=== PATIENT | female | born 1995 | race Caucasian/White ===

== ENCOUNTER 2017-02-04 12:52 | Emergency (ER) | payer OTHER ==
[~2017-02-04] VITALS: Ht 160 cm; Wt 119.3 kg
[2017-02-04 14:05] VITALS: BP 134/85
== END 2017-02-04 14:05 | disposition home or self-care (01) ==
LOC: ED 12:52
DX: J02.9 Acute pharyngitis, unspecified (principal); I10 Essential (primary) hypertension; E66.01 Morbid (severe) obesity due to excess calories

== ENCOUNTER 2017-02-20 13:52 | Emergency (ER) | payer OTHER ==
[~2017-02-20] VITALS: Ht 160 cm; Wt 119.9 kg
[2017-02-20 18:31] VITALS: BP 125/68
== END 2017-02-20 18:31 | disposition home or self-care (01) ==
LOC: ED 13:52
DX: G44.209 Tension-type headache, unspecified, not intractable (principal); I10 Essential (primary) hypertension
CPT/HCPCS: J2270; J2550

== ENCOUNTER 2017-05-14 05:54 | Emergency (ER) | payer OTHER ==
[~2017-05-14] VITALS: Ht 160 cm; Wt 123.4 kg
[2017-05-14 06:09] VITALS: BP 132/81
== END 2017-05-14 06:57 | disposition home or self-care (01) ==
LOC: ED 05:54
DX: R60.0 Localized edema (principal); I10 Essential (primary) hypertension

== ENCOUNTER 2017-05-23 19:29 | Emergency (ER) | payer OTHER ==
[2017-05-23 21:27] LABS: BASOPHIL % 0.6 % (0-2); PLATELET COUNT 238 x10^3mcL (130-400); RED CELL DISTRIBUTION WIDTH 13.3 % (11.5-14.5)
[2017-05-23 21:35] LABS: CALCIUM 8.7 mg/dL (8.5-10.1); CARBON DIOXIDE 27.8 mmol/L (21-32); CHLORIDE SERUM 105 mmol/L (98-107); CREATININE SERUM 0.9 mg/dL (0.6-1.0); GFR1 > 60 mL/min; GLUCOSE SERUM 104 mg/dL (74-106); POTASSIUM SERUM 3.2 mmol/L (3.5-5.1); SODIUM SERUM 141 mmol/L (136-145)
[2017-05-23 21:47] LABS: ALBUMIN 3.4 g/dL (3.4-5.0); ALKALINE PHOSPHATASE 56 U/L (46-116); ALT/SGPT 48 U/L (14-59); AST/SGOT 25 U/L (15-37); BILIRUBIN TOTAL 0.26 mg/dL (0.20-1.00); CHOLESTEROL 170 mg/dL (<200); HDL CHOLESTEROL 51 mg/dL (40-60); T4(THYROXINE) 8.4 ug/dL (4.7-13.3)
[2017-05-23 21:59] LABS: UA SPECIFIC GRAVITY 1.025 (1.005-1.035); microscopic required? YES; urine erythrocyte TRACE (NEGATIVE)
[2017-05-23 22:05] LABS: AMPHETAMINE QUAL UR NONE DETECTED (NEG <=1000)
[2017-05-24] VITALS: BP 138/83
== END 2017-05-24 | disposition home or self-care (01) ==
LOC: ED 19:29
PROVIDERS: Emergency Medicine
DX: R60.0 Localized edema (principal); E87.6 Hypokalemia; E66.01 Morbid (severe) obesity due to excess calories; I10 Essential (primary) hypertension; G47.30 Sleep apnea, unspecified
CPT/HCPCS: 36415; 83880

== ENCOUNTER 2017-09-13 14:11 | Emergency (ER) | payer OTHER ==
[2017-09-13 14:50] VITALS: BP 127/86
== END 2017-09-13 14:50 | disposition home or self-care (01) ==
LOC: ED 14:11
DX: J06.9 Acute upper respiratory infection, unspecified (principal); H92.03 Otalgia, bilateral; I10 Essential (primary) hypertension; Z90.89 Acquired absence of other organs

== ENCOUNTER 2017-10-26 13:44 | Emergency (ER) | payer OTHER ==
[2017-10-26 17:04] VITALS: BP 142/85
== END 2017-10-26 17:04 | disposition home or self-care (01) ==
LOC: ED 13:44
DX: J02.0 Streptococcal pharyngitis (principal); I10 Essential (primary) hypertension; G47.30 Sleep apnea, unspecified; R51 Headache
CPT/HCPCS: J7030

== ENCOUNTER 2017-11-06 13:26 | Emergency (ER) | payer OTHER ==
[~2017-11-06] VITALS: Ht 160 cm; Wt 118.4 kg
[2017-11-06 13:37] VITALS: BP 160/89; Ht 160 cm; Wt 118.4 kg
== END 2017-11-06 15:37 | disposition home or self-care (01) ==
LOC: ED 13:26
DX: J03.90 Acute tonsillitis, unspecified (principal); I10 Essential (primary) hypertension

== ENCOUNTER 2017-12-31 09:09 | Emergency (ER) | payer OTHER ==
[~2017-12-31] VITALS: Ht 162.6 cm; Wt 116.7 kg
[2017-12-31 09:32] VITALS: BP 105/50
== END 2017-12-31 11:34 | disposition home or self-care (01) ==
LOC: ED 09:09
DX: J06.9 Acute upper respiratory infection, unspecified (principal); J01.90 Acute sinusitis, unspecified; R07.89 Other chest pain

== ENCOUNTER 2018-02-04 22:52 | Emergency (ER) | payer OTHER ==
[~2018-02-04] VITALS: Ht 160 cm; Wt 117.9 kg
[2018-02-04 23:03] VITALS: Ht 160 cm; Wt 117.9 kg
[2018-02-05 00:54] VITALS: BP 125/75
== END 2018-02-05 00:54 | disposition home or self-care (01) ==
LOC: ED 22:52
DX: M54.5 Low back pain (principal); I10 Essential (primary) hypertension; Z90.49 Acquired absence of other specified parts of digestive tract; F17.210 Nicotine dependence, cigarettes, uncomplicated

== ENCOUNTER 2018-02-10 20:15 | Emergency (ER) | payer OTHER ==
[~2018-02-10] VITALS: Ht 167.6 cm; Wt 116.6 kg
[2018-02-10 21:02] VITALS: BP 122/82; Ht 167.6 cm; Wt 116.6 kg
== END 2018-02-10 22:28 | disposition left against medical advice (07) ==
LOC: ED 20:15
DX: Z53.21 Procedure and treatment not carried out due to patient leaving prior to being seen by health care provider (principal)

== ENCOUNTER 2018-02-12 13:30 | Emergency (ER) | payer OTHER ==
[~2018-02-12] VITALS: Ht 160 cm; Wt 115.7 kg
[2018-02-12 13:49] VITALS: Ht 160 cm; Wt 115.7 kg
[2018-02-12 15:33] VITALS: BP 134/75
== END 2018-02-12 15:33 | disposition home or self-care (01) ==
LOC: ED 13:30
DX: N39.0 Urinary tract infection, site not specified (principal); I10 Essential (primary) hypertension

== ENCOUNTER 2018-03-05 20:35 | Emergency (ER) | payer OTHER ==
[~2018-03-05] VITALS: Ht 160 cm; Wt 117.9 kg
[2018-03-05 20:51] VITALS: Ht 160 cm; Wt 117.9 kg
[2018-03-05 22:15] VITALS: BP 113/88
== END 2018-03-05 22:15 | disposition home or self-care (01) ==
LOC: ED 20:35
DX: J02.9 Acute pharyngitis, unspecified (principal); I10 Essential (primary) hypertension

== ENCOUNTER 2018-06-02 10:08 | Emergency (ER) | payer OTHER ==
[~2018-06-02] VITALS: Ht 160 cm; Wt 110.4 kg
[2018-06-02 10:16] VITALS: Ht 160 cm; Wt 110.4 kg
[2018-06-02 13:34] VITALS: BP 131/65
== END 2018-06-02 13:38 | disposition left against medical advice (07) ==
LOC: ED 10:08
DX: N64.4 Mastodynia (principal); I10 Essential (primary) hypertension
CPT/HCPCS: 76641

== ENCOUNTER 2018-08-13 12:56 | Emergency (ER) | payer OTHER ==
[~2018-08-13] VITALS: Ht 160 cm; Wt 110.7 kg
[2018-08-13 13:11] VITALS: BP 133/81; Ht 160 cm; Wt 110.7 kg
== END 2018-08-13 14:47 | disposition home or self-care (01) ==
LOC: ED 12:56
DX: L29.9 Pruritus, unspecified (principal); F17.210 Nicotine dependence, cigarettes, uncomplicated; I10 Essential (primary) hypertension
CPT/HCPCS: Q0163

== ENCOUNTER 2018-09-01 13:07 | Emergency (ER) | payer OTHER ==
[~2018-09-01] VITALS: Ht 160 cm; Wt 109.8 kg
[2018-09-01 13:44] VITALS: Ht 160 cm; Wt 109.8 kg
[2018-09-01 15:31] LABS: BASOPHIL % 0.4 % (0-2); PLATELET COUNT 249 x10^3mcL (130-400); RED CELL DISTRIBUTION WIDTH 13.3 % (11.5-14.5)
[2018-09-01 15:33] LABS: UA SPECIFIC GRAVITY 1.015 (1.005-1.035); microscopic required? YES; urine erythrocyte 3+ (NEGATIVE)
[2018-09-01 15:55] LABS: T4(THYROXINE) 9.5 ug/dL (4.7-13.3)
[2018-09-01 17:23] VITALS: BP 129/87
== END 2018-09-01 17:23 | disposition home or self-care (01) ==
LOC: ED 13:07
PROVIDERS: Emergency Medicine
DX: N93.8 Other specified abnormal uterine and vaginal bleeding (principal); F17.200 Nicotine dependence, unspecified, uncomplicated; I10 Essential (primary) hypertension; Z90.49 Acquired absence of other specified parts of digestive tract; Z98.890 Other specified postprocedural states; Z90.721 Acquired absence of ovaries, unilateral
CPT/HCPCS: 99406; J1885

== ENCOUNTER 2018-10-29 19:12 | Emergency (ER) | payer SELFPAY ==
[~2018-10-29] VITALS: Ht 160 cm; Wt 108.4 kg
[2018-10-29 20:02] VITALS: BP 118/93; Ht 160 cm; Wt 108.4 kg
== END 2018-10-29 22:31 | disposition home or self-care (01) ==
LOC: ED 19:12
DX: N64.4 Mastodynia (principal); Z90.49 Acquired absence of other specified parts of digestive tract

== ENCOUNTER 2019-01-15 19:13 | Emergency (ER) | payer OTHER ==
[~2019-01-15] VITALS: Ht 160 cm; Wt 108.4 kg
[2019-01-15 19:17] VITALS: Ht 160 cm; Wt 108.4 kg
[2019-01-15 21:42] VITALS: BP 109/70
== END 2019-01-15 21:42 | disposition home or self-care (01) ==
LOC: ED 19:13
DX: N64.4 Mastodynia (principal); I10 Essential (primary) hypertension; Z90.49 Acquired absence of other specified parts of digestive tract; Z90.721 Acquired absence of ovaries, unilateral; Z98.890 Other specified postprocedural states

== ENCOUNTER 2019-04-07 11:14 | Emergency (ER) | payer OTHER ==
[~2019-04-07] VITALS: Ht 160 cm; Wt 107.5 kg
[2019-04-07 11:19] VITALS: BP 119/71; Ht 160 cm; Wt 107.5 kg
== END 2019-04-07 11:48 | disposition home or self-care (01) ==
LOC: ED 11:14
DX: N64.4 Mastodynia (principal)

== ENCOUNTER 2019-09-13 15:01 | Emergency (ER) | payer OTHER ==
[~2019-09-13] VITALS: Ht 160 cm; Wt 101.2 kg
[2019-09-13 15:02] VITALS: Ht 160 cm; Wt 101.2 kg
[2019-09-13 16:56] VITALS: BP 118/85
== END 2019-09-13 16:56 | disposition other institution (70) ==
LOC: ED 15:01
DX: Z02.89 Encounter for other administrative examinations (principal)

== ENCOUNTER 2019-10-25 12:01 | Emergency (ER) | payer OTHER ==
[~2019-10-25] VITALS: Ht 160 cm; Wt 97.1 kg
[2019-10-25 12:23] VITALS: Ht 160 cm; Wt 97.1 kg
[2019-10-25 17:10] VITALS: BP 102/63
== END 2019-10-25 17:10 | disposition home or self-care (01) ==
LOC: ED 12:01
DX: F41.9 Anxiety disorder, unspecified (principal); R20.2 Paresthesia of skin; R21 Rash and other nonspecific skin eruption; R07.89 Other chest pain; I10 Essential (primary) hypertension; F31.9 Bipolar disorder, unspecified; Z90.49 Acquired absence of other specified parts of digestive tract

== ENCOUNTER 2020-01-03 15:53 | Emergency (ER) | payer OTHER ==
[~2020-01-03] VITALS: Ht 160 cm; Wt 102.5 kg
[2020-01-03 16:07] VITALS: BP 137/55; Ht 160 cm; Wt 102.5 kg
== END 2020-01-03 19:50 | disposition left against medical advice (07) ==
LOC: ED 15:53
DX: R51 Headache (principal); V49.59XA Passenger injured in collision with other motor vehicles in traffic accident, initial encounter; Y93.89 Activity, other specified; Y92.413 State road as the place of occurrence of the external cause; Y99.8 Other external cause status

== ENCOUNTER 2020-01-04 12:24 | Emergency (ER) | payer OTHER ==
[~2020-01-04] VITALS: Ht 162.6 cm; Wt 101.6 kg
[2020-01-04 12:46] VITALS: Ht 162.6 cm; Wt 101.6 kg
[2020-01-04 17:03] VITALS: BP 112/45
== END 2020-01-04 17:03 | disposition home or self-care (01) ==
LOC: ED 12:24
DX: S09.90XA Unspecified injury of head, initial encounter (principal); I10 Essential (primary) hypertension; V47.6XXA Car passenger injured in collision with fixed or stationary object in traffic accident, initial encounter; Y93.89 Activity, other specified; Y92.89 Other specified places as the place of occurrence of the external cause; Y99.8 Other external cause status

== ENCOUNTER 2020-03-14 06:43 | Emergency (ER) | payer OTHER ==
[~2020-03-14] VITALS: Ht 160 cm; Wt 113.4 kg
[2020-03-14 06:50] VITALS: Ht 160 cm; Wt 113.4 kg
[2020-03-14 07:39] VITALS: BP 123/89
== END 2020-03-14 07:39 | disposition home or self-care (01) ==
LOC: ED 06:43
DX: J02.9 Acute pharyngitis, unspecified (principal); I10 Essential (primary) hypertension; Z20.828 Contact with and (suspected) exposure to other viral communicable diseases

== ENCOUNTER 2020-07-13 08:20 | Emergency (ER) | payer OTHER, SELFPAY ==
[~2020-07-13] VITALS: Ht 160 cm; Wt 113.9 kg
[2020-07-13 08:24] VITALS: Ht 160 cm; Wt 113.9 kg
[2020-07-13 08:53] VITALS: BP 121/80
== END 2020-07-13 08:53 | disposition home or self-care (01) ==
LOC: ED 08:20
DX: J02.9 Acute pharyngitis, unspecified (principal); I10 Essential (primary) hypertension; Z20.828 Contact with and (suspected) exposure to other viral communicable diseases
CPT/HCPCS: U0003-CS

== ENCOUNTER → 2020-08-09 | Emergency (ER) | payer OTHER ==
[~2020-08-09] VITALS: Ht 160 cm; Wt 116.6 kg
[2020-08-09 17:23] VITALS: Ht 160 cm; Wt 116.6 kg
[2020-08-09 18:29] LABS: BASOPHIL % 0.3 % (0-2); PLATELET COUNT 242 x10^3mcL (130-400); RED CELL DISTRIBUTION WIDTH 13.4 % (11.5-14.5)
[2020-08-09 18:31] LABS: CALCIUM 8.6 mg/dL (8.5-10.1); CARBON DIOXIDE 27.6 mmol/L (21-32); CHLORIDE SERUM 105 mmol/L (98-107); GFR1 > 60 mL/min; GLUCOSE SERUM 103 mg/dL (74-106); POTASSIUM SERUM 3.6 mmol/L (3.5-5.1); SODIUM SERUM 139 mmol/L (136-145)
[2020-08-09 18:36] LABS: ALBUMIN 3.5 g/dL (3.4-5.0); ALKALINE PHOSPHATASE 53 U/L (46-116); ALT/SGPT 42 U/L (14-59); AST/SGOT 23 U/L (15-37); BILIRUBIN TOTAL 0.42 mg/dL (0.20-1.00)
[2020-08-09 19:30] VITALS: BP 111/54
== END ==
LOC: ED 17:17
PROVIDERS: Specialist
DX: R07.89 Other chest pain (principal); I10 Essential (primary) hypertension; Z98.890 Other specified postprocedural states; Z90.49 Acquired absence of other specified parts of digestive tract
CPT/HCPCS: 85378; J1885; Q0092

== ENCOUNTER 2020-08-12 11:29 | Emergency (ER) | payer OTHER ==
[~2020-08-12] VITALS: Ht 160 cm; Wt 115.7 kg
[2020-08-12 12:05] VITALS: Ht 160 cm; Wt 115.7 kg
[2020-08-12 13:29] VITALS: BP 122/76
== END 2020-08-12 13:29 | disposition home or self-care (01) ==
LOC: ED 11:29
DX: S39.012A Strain of muscle, fascia and tendon of lower back, initial encounter (principal); I10 Essential (primary) hypertension; Z98.890 Other specified postprocedural states; X58.XXXA Exposure to other specified factors, initial encounter; Y93.89 Activity, other specified; Y92.89 Other specified places as the place of occurrence of the external cause; Y99.8 Other external cause status